=== PATIENT | male | born 1990 | race Caucasian/White ===

== ENCOUNTER 2023-07-16 16:56 | Outpatient (CLI) | payer OTHER, MEDICAID | END 2023-07-16 16:57 | disposition EMS.NT | LOC: EMS 16:56 | DX: Z04.1 Encounter for examination and observation following transport accident (principal) ==

== ENCOUNTER 2023-07-16 19:57 | Emergency (ER) | payer OTHER, MEDICAID ==
[2023-07-16 20:24] VITALS: BP 140/82; O2SAT 98
[2023-07-16] MEDS ORDERED: KETOROLAC 30 MG/ML VIAL IM STA (20:27)
[2023-07-16] MEDS ORDERED: TETANUS/DIPHTHERIA/PERTUSSIS 0.5 ML SYRINGE IM ONE (20:27)
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
== END 2023-07-16 21:50 | disposition home or self-care (01) ==
LOC: ED 19:57
DX: S06.0X0A Concussion without loss of consciousness, initial encounter (principal); S00.03XA Contusion of scalp, initial encounter; S00.81XA Abrasion of other part of head, initial encounter; S50.819A Abrasion of unspecified forearm, initial encounter; V43.52XA Car driver injured in collision with other type car in traffic accident, initial encounter; F17.200 Nicotine dependence, unspecified, uncomplicated; Z23 Encounter for immunization
CPT/HCPCS: 90471; 96372; 99284

== ENCOUNTER 2023-11-13 10:39 | Emergency (ER) | payer MEDICAID ==
[2023-11-13 10:48] VITALS: O2SAT 98
--- NOTE | 2023-11-13 11:25 | ED Physician Documentation ---
PD HPI SKIN - Stated complaint Stated Complaint: ALLERGIC REACTION FACE - Chief complaint Chief Complaint: Allergic Rx - History obtained from History obtained from: Patient - History of Present Illness Timing - onset: Last night Timing - duration: Hours (12) Timing - details: Gradual onset (he had run out of shampoo/body wash and used a "hotel soap" that was udnder the sink (collected by others from hotel stays). He states he scrubbed his face as usual (has some acne so is regular face care). Started to have stinging feeling of skin with redness that increased overnight. Very red now.), Still present Location: Face (he only used the soap on his face and only has the rash on the face.) Quality / character: Painful, Burning, Discolored (red in demarcated pattern c/w areas washed/scrubbed.). No: Vesicular (he does have superficial skin loss with redness and tenderness but no residual blisters now.) Associated symptoms: Other (no URI symptoms.). No: Fever, N/V/D Contributing factors: Exposed to soap / lotion Similar symptoms before: Has not had sx before Review of Systems Constitutional: denies: Fever, Chills Nose: denies: Rhinorrhea / runny nose, Congestion Throat: denies: Sore throat Respiratory: denies: Dyspnea, Cough PD PAST MEDICAL HISTORY - Past Medical History Past Medical History: Yes Psych: Anxiety, Schizophrenia, ADD/ADHD Derm: Other (acne) - Past Surgical History Past Surgical History: Yes HEENT: Tonsil/Adenoidectomy - Present Medications Home Medications: Ambulatory Orders Medication Instructions Recorded Confirmed Gabapentin [Neurontin] 800 mg PO QPM 07/16/23 11/13/23 Betamethasone Dipropionate 15 gm TP BID #15 gm 11/13/23 Lidocaine Jelly 2% [Glydo] 1 applic TOP Q6H PRN #30 gm 11/13/23 dexAMETHasone [Decadron] 4 mg PO DAILY #5 tablet 11/13/23 - Allergies Allergies/Adverse Reactions: Allergies Allergy/AdvReac Type Severity Reaction Status Date / Time No Known Drug Allergies Allergy Verified 11/13/23 10:46 - Social History Does the pt smoke?: Yes Smoking Status: Current every day smoker Does the pt drink ETOH?: No Does the pt have substance abuse?: Yes PD ED PE NORMAL - Vitals Vital signs reviewed: Yes - General General: Alert and oriented X 3, Well developed/nourished, Other (in notable discomfort and upset about the facial pain and appearsnce. Concerned about scarring, but is not deep enough for scarring. ) - HEENT HEENT: Pharynx benign (no intraoral swelling), Other (face with patched pattern of redness and superficial skin excoriation/loss in areas c/w scrubbing/washing (forehead, cheeks, ar). ) - Neck Neck: No adenopathy - Cardiac Cardiac: RRR, No murmur - Respiratory Respiratory: Clear bilaterally Results - Vitals Vitals: Oxygen O2 Source Room air PD Medical Decision Making - ED course Complexity details: re-evaluated patient (improved symptoms with topical lidocaine. Given PO steroids for initial dose and Rx lido and topical steroids too. Does not appear deep enough for scarring. Should heal okay. ), other (on Suicide safety screen, he states he had had intangible/vague thought of self harm without plan when upset in past. no current feelings of depression nor suicidal ideation. ) Departure - Departure Disposition: 01 Home, Self Care Clinical Impression: Contact dermatitis Qualifiers: Contact dermatitis type: allergic Contact dermatitis trigger: other chemical product Qualified Code(s): L23.5 - Allergic contact dermatitis due to other chemical products Condition: Stable Record reviewed to determine appropriate education?: Yes Instructions: ED Dermatitis Contact Prescriptions: Betamethasone Dipropionate 15 gm TP BID #15 gm dexAMETHasone [Decadron] 4 mg PO DAILY #5 tablet Lidocaine Jelly 2% [Glydo] 1 applic TOP Q6H PRN #30 gm PRN Reason: Pain 5-7 Comments: Obviously avoid that soap/shampoo. The irritation should improve with some anti-inflammatories. We can go with some oral steroid dosing for a few days and also some topical in the worst spot very lightly twice daily for no more than 5 days. This should improve over the next several days. Meanwhile you can use lidocaine topically to help with the discomfort. There will be some weeping of the wound due to the rawness of the skin. That would be natural. Watch for signs of thicker or purulent type drainage or any spreading redness that may suggest secondary infection. Tylenol and/or ibuprofen as needed for pains. The acute pain of this should decrease over the a few days and the rash heal over. There may be some redness coloring of the skin that lasts for a few weeks before coming back to skin tone. This would be alpa to a bad sunburn or such. I sent your prescriptions to your preferred pharmacy. Forms: PCP List Discharge Date/Time: 11/13/23 12:40
[2023-11-13] MEDS: dexAMETHasone 4 MG TABLET PO STA (11:44)
[2023-11-13] MEDS: IBUPROFEN 600 MG TABLET PO STA (11:44)
[2023-11-13] MEDS: ACETAMINOPHEN 500 MG TABLET PO STA (11:44)
[2023-11-13] MEDS: CETIRIZINE 10 MG TABLET PO STA (11:44)
[2023-11-13] MEDS: LIDOCAINE JELLY 2% 6 ML JEL.PF.APP TOP STA (11:45)
[2023-11-13 12:42] VITALS: BP 116/66
== END 2023-11-13 12:40 | disposition home or self-care (01) ==
LOC: ED 10:39
DX: L23.5 Allergic contact dermatitis due to other chemical products (principal); F17.200 Nicotine dependence, unspecified, uncomplicated; Z79.899 Other long term (current) drug therapy
CPT/HCPCS: 99282; 99283; A9270; J8540

== ENCOUNTER 2024-01-28 20:52 | Emergency (ER) | payer MEDICAID ==
[2024-01-28 21:09] VITALS: BP 160/80; O2SAT 99
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
[2024-01-28] MEDS: cephALEXin 250 MG CAPSULE PO STA (21:21)
[2024-01-28] MEDS: SULFAMETH/TRIMETH DS 800/160 MG TABLET PO STA (21:21)
== END 2024-01-28 21:20 | disposition home or self-care (01) ==
LOC: ED 20:52
DX: L03.311 Cellulitis of abdominal wall (principal); F17.200 Nicotine dependence, unspecified, uncomplicated; Z79.899 Other long term (current) drug therapy
CPT/HCPCS: 99283; A9270